=== PATIENT | female | born 1985 | race African-American/Black ===

== ENCOUNTER 2017-02-21 17:43 | Emergency (ER) | payer SELFPAY ==
[~2017-02-21] VITALS: Ht 154.9 cm; Wt 65.9 kg
[~2017-02-21 17:43] MED LIST: NAPR550T3 PO; TRAM-28 PO
[2017-02-21] MEDS ORDERED: NALOXONE 1 MG/ML, 2ML IVPush ONE (18:00)
[2017-02-21] MEDS ORDERED: NALOXONE 0.4 MG/ML, 1ML ONE (18:22)
[2017-02-21] MEDS ORDERED: PLEASE ENTER HEIGHT AND WEIGHT MC SCH (18:30)
[2017-02-21] MEDS ORDERED: NALOXONE 1 MG/ML, 2ML ONE (18:33)
[2017-02-21 18:39] LABS: BLOOD UREA NITROGEN 4 mg/dL (7-18)
[2017-02-21 18:41] LABS: ACETAMINOPHEN < 2 mcg/mL (10-30)
[2017-02-21] MEDS ORDERED: POTASSIUM CHLORIDE 20 MEQ TAB.ER.PRT PO ONE (20:30)
[2017-02-21 22:18] LABS: DAU SCREEN DISCLAIMER
[2017-02-21] MEDS ORDERED: POTASSIUM CHLORIDE 20 MEQ TAB.ER.PRT ONE (22:22)
[2017-02-21 22:27] LABS: HCG UR OBC PASS
[2017-02-22 00:05] VITALS: BP 141/90
== END 2017-02-22 00:08 | disposition home or self-care (01) ==
LOC: ED 21:22
DX: F10.220 Alcohol dependence with intoxication, uncomplicated (principal); R41.82 Altered mental status, unspecified
CPT/HCPCS: 36415; 80048; 80307; 80329; 81003; 81025; 82040; 82140; 85025; 96374; 99284; J2310; G0480

== ENCOUNTER 2017-04-16 23:15 | Emergency (ER) | payer OTHER ==
[~2017-04-16] VITALS: Ht 154.9 cm; Wt 65.0 kg
[~2017-04-16 23:15] MED LIST changes: -NAPR550T3 PO; +NAPR550T30 PO
[2017-04-16] MEDS ORDERED: IBUPROFEN 800 MG TABLET PO STA (23:29)
[2017-04-16] MEDS ORDERED: SODIUM CHLORIDE FLUSH 10ML SYR IVF ONE (23:30)
[2017-04-16] MEDS ORDERED: SODIUM CHLORIDE 0.9% 1,000ML IVBOLUS ONE (23:30)
[2017-04-16] MEDS ORDERED: ONDANSETRON 2MG/ML, 2ML IVPush ONE (23:30)
[2017-04-16] MEDS ORDERED: ONDANSETRON 2MG/ML, 2ML ONE (23:35)
[2017-04-16] MEDS ORDERED: IBUPROFEN 200 MG TABLET ONE (23:35)
[2017-04-17 00:03] LABS: ASPARTATE AMINO TRANSFERASE 45 U/L (15-37); BLOOD UREA NITROGEN 7 mg/dL (7-18)
[2017-04-17 00:09] LABS: IS PT STATUS REG ER OR PRE ER? YES
[2017-04-17 00:29] LABS: DIFF TOTAL CELLS COUNTED 100 CELL DIFF
[2017-04-17 00:35] LABS: VERIFY COUNTS? YES
[2017-04-17 02:13] VITALS: BP 150/96
== END 2017-04-17 02:29 | disposition home or self-care (01) ==
LOC: ED 23:59
DX: R10.13 Epigastric pain (principal); R11.0 Nausea; F17.200 Nicotine dependence, unspecified, uncomplicated
CPT/HCPCS: 36415; 71010; 80053; 80307; 84484; 85025; 93005; 96361; 96374; 99285; J2405; J7030

== ENCOUNTER 2017-05-15 15:54 | Emergency (ER) | payer OTHER ==
[~2017-05-15] VITALS: Ht 162.6 cm; Wt 63.0 kg
[~2017-05-15 15:54] MED LIST changes: +NAPR-850 PO; -NAPR550T30 PO; -TRAM-28 PO; +TRAM-47 PO
[2017-05-15 17:19] VITALS: BP 130/94
== END 2017-05-15 19:42 | disposition home or self-care (01) ==
LOC: ED 16:56
DX: F10.120 Alcohol abuse with intoxication, uncomplicated (principal); Z59.0 Homelessness
CPT/HCPCS: 99283

== ENCOUNTER 2017-05-19 01:08 | Emergency (ER) | payer OTHER ==
[~2017-05-19] VITALS: Ht 154.9 cm; Wt 61.2 kg
[2017-05-19] MEDS ORDERED: DIPH,PERTUSS(ACELL),TET VAC/PF 0.5 ML IM-VACC ONE (01:30)
[2017-05-19] MEDS ORDERED: LIDOCAINE 2%, 20ML SQ ONE (01:30)
[2017-05-19 01:43] VITALS: BP 125/91
[2017-05-19] MEDS ORDERED: LIDOCAINE 1%, 20ML ONE (02:16)
== END 2017-05-19 05:21 | disposition home or self-care (01) ==
LOC: ED 03:52
DX: S61.214A Laceration without foreign body of right ring finger without damage to nail, initial encounter (principal); F15.10 Other stimulant abuse, uncomplicated; X58.XXXA Exposure to other specified factors, initial encounter; Y93.89 Activity, other specified; Y92.89 Other specified places as the place of occurrence of the external cause; Y99.8 Other external cause status
CPT/HCPCS: 12002

== ENCOUNTER 2017-05-28 07:40 | Emergency (ER) | payer SELFPAY ==
[~2017-05-28] VITALS: Ht 152.4 cm; Wt 55.0 kg
[2017-05-28] MEDS ORDERED: HYDROcodone/APAP 5/325 TABLET ONE (08:07)
[2017-05-28] MEDS ORDERED: HYDROcodone/APAP 5/325 TABLET PO ONE (08:30)
[2017-05-28 09:05] VITALS: BP 143/96
[2017-05-28] MEDS ORDERED: SULFAMETH./TRIMETHOPRIM DS 800MG/160MG TABLET PO ONE (10:00)
[2017-05-28] MEDS ORDERED: CEFAZOLIN 1,000 MG IM ONE (10:00)
[2017-05-28] MEDS ORDERED: CEFAZOLIN 1,000 MG ONE (10:14)
[2017-05-28] MEDS ORDERED: SULFAMETH./TRIMETHOPRIM DS 800MG/160MG TABLET ONE (10:15)
[2017-05-28] MEDS ORDERED: BACITRACIN ZINC OINT 500U/GM, 0.9 GM ONE (11:39)
== END 2017-05-28 11:52 | disposition home or self-care (01) ==
LOC: ED 08:39
DX: Z48.01 Encounter for change or removal of surgical wound dressing (principal); L03.011 Cellulitis of right finger
CPT/HCPCS: 73130; 96372; 99284; J0690